=== PATIENT | female | born 1985 | race Caucasian/White ===

== ENCOUNTER 2018-12-06 08:51 | Inpatient (IN) ==
[2018-12-06] MEDS ORDERED: Oxytocin 20 units/ LR 1000 mL 20 UNIT/1,000 ML BAG IVC ONE (09:06)
[2018-12-06 09:51] LABS: Basophils # 0.1 K/mcL (0.0-0.2); Basophils % 0.2 %; Hematocrit 45.2 % (35.3-44.9); Hemoglobin 15.1 g/dL (11.5-15.4); Immature Granulocytes % 0.7 % (0-4); Lymphocytes % 4.8 %; Mean Corpuscular HGB Conc 33.4 g/dL (31.6-35.5); Mean Corpuscular Volume 95.8 fL (83.0-100.0); Mean Platelet Volume 12.2 fL (9.4-12.4); Monocytes # 0.8 K/mcL (0.0-1.3); Monocytes % 3.7 %; Neutrophils # 19.3 K/mcL (1.6-8.9); Platelet Count 174 K/mcL (140-400); Red Blood Count 4.72 M/mcL (3.82-4.97); Red Cell Distribution Width 13.1 % (11.5-14.5); Segmented Neutrophils % 90.6 %; White Blood Count 21.3 K/mcL (4.3-11.1)
[2018-12-06] MEDS ORDERED: Measles/Mumps/Rubella Vacc 0.5 ML VIAL SQ PRN (10:08)
--- NOTE | 2018-12-06 10:10 | OB/GYN Procedure Note ---
Delivery - Delivery Date: 12/06/18 Provider: Randa Malone Intrapartum events: meconium, prolonged 2nd stage>2.5hr Delivery induction: none Delivery monitor: external FHT Anesthesia: none Quantitated Blood Loss: 300 - (s) A Delivery Date: 12/06/18 Delivery Time: 09:12 Presentation: vertex Position: LOP Route of delivery: Gender: Male Viability: Viable Pounds: 8 Ounces: 15 Weight Gram: 4.04 kg at 1 minute: 8 at 5 mins: 9 Shoulder Dystocia: not encountered Specimens collected: cord blood Placenta: spontaneous - Repair Episiotomy: none Laceration Description: Perineal - 2nd Degree - Complications Delivery complications: meconium - Disposition Mom disposition: stable in LDR disposition: stable in LDR - Comments Comments: 32yo @ 41.0wga presented from the [facility] having pushed for approximately 2 hours with a presumed brow presentation, mentum anterior. She spontaneously ruptured at 0508 and meconium fluid was noted. She started pushing at 0548. Upon arrival to labor and delivery she was found to be complete and +1. The head was ROP and the brow was converting to a vertex with pushes. The patient progressed to complete without epidural anesthesia. She pushed to deliver a live male over an intact perineum. The head delivered in ROP position. A nuchal cord was not identified. The right anterior shoulder delivered with ease followed by the rest of the body. The 's mouth and nose were not bulb suctioned. The infant was safely transferred to the maternal abdomen for further care by RN and mother-baby skin to skin time. The umbilical cord was clamped 2 and cut by the father. Cord blood was collected and sent for routine testing. The placenta was expressed intact and held for possible testing. The cervix, vagina and perineum were inspected. A second degree midline perineal laceration was noted. This laceration was repaired with 2-0 Monocryl in usual fashion. APGARS 8/9. Weight 8# 15oz. EBL was [address] Malone was present for delivery.
[2018-12-06] MEDS ORDERED: Oxytocin 20 units/ LR 1000 mL 20 UNIT/1,000 ML BAG IVC SCH (10:15)
[2018-12-06] MEDS ORDERED: Ibuprofen 600 MG TABLET PO SCH (12:00)
[2018-12-06] MEDS ORDERED: Acetaminophen 325 MG TABLET PO SCH (12:00)
--- NOTE | 2018-12-06 17:07 | Discharge Summary ---
Date of Encounter: 12/06/18 Time of Encounter: 17:05 - Discharge Diagnosis (1) Vaginal delivery Priority: Primary Status: Acute Comments: S/P Vaginal delivery Pain is well controlled Lochia is light and without clots Voiding without difficulty Tolerating regular diet Would like to discharge home today (day 0) Stable and per consult with Dr Malone; ok to discharge - Discharge Medications Prescriptions: New Acetaminophen [Tylenol] 650 mg PO Q6HR tablet Ibuprofen [Motrin] 600 mg PO Q6HR tablet Docusate [Colace] 100 mg PO BID capsule Continued 19 Tablet 1 tab PO DAILY Home Medications: Acetaminophen [Tylenol] 650 mg PO Q6HR tablet 12/06/18 [Rx] Docusate [Colace] 100 mg PO BID capsule 12/06/18 [Rx] Ibuprofen [Motrin] 600 mg PO Q6HR tablet 12/06/18 [Rx] 19 Tablet 1 tab PO DAILY 12/06/18 [History] Allergies/Adverse Reactions: Allergy/AdvReac Type Severity Reaction Status Date / Time No Known Allergies Allergy Verified 12/06/18 09:05 Data Procedures and tests throughout hospitalization: Laboratory Tests 12/06/18 12/06/18 09:00 09:00 WBC 21.3 H RBC 4.72 Hgb 15.1 Hct 45.2 H MCV 95.8 MCH 32.0 MCHC 33.4 RDW 13.1 Plt Count 174 MPV 12.2 Immature Gran % 0.7 Seg Neutrophils % 90.6 Lymphocytes % 4.8 Monocytes % 3.7 Eosinophils % 0.0 Basophils % 0.2 Neutrophils # 19.3 H Lymphocytes # 1.0 Monocytes # 0.8 Eosinophils # 0.0 Basophils # 0.1 Hep Bs Antigen Nonreactive Labs on day of discharge: Labs from last 24 hours 12/06/18 12/06/18 09:00 09:00 WBC 21.3 H RBC 4.72 Hgb 15.1 Hct 45.2 H MCV 95.8 MCH 32.0 MCHC 33.4 RDW 13.1 Plt Count 174 MPV 12.2 Immature Gran % 0.7 Seg Neutrophils % 90.6 Lymphocytes % 4.8 Monocytes % 3.7 Eosinophils % 0.0 Basophils % 0.2 Neutrophils # 19.3 H Lymphocytes # 1.0 Monocytes # 0.8 Eosinophils # 0.0 Basophils # 0.1 Hep Bs Antigen Nonreactive Date of admission: 12/06/18 08:51 Primary care physician: PCP NONE Discharging clinician: Katherine Coffman Anticipated date of discharge: 12/06/18 - Patient Status Disposition: Home, Self-Care Condition: Good Functional capacity at discharge: independent ambulation Overall status at discharge: patient is progressing back to baseline - Discharge Instructions Follow Up With: NONE,PCP [Primary Care Provider] - Additional Instructions: 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 We would be happy to see you with any problems, questions, or concerns that you may have. - Diet and Activity Activity: increase activity as tolerated Diet: regular diet Hospital Course Reason for admission: active labor (brow presentation at [facility]), IUP at term Episiotomy: none Laceration: 2nd degree Other procedures: none complications: none Discharge diagnosis: IUP at term delivered [place] baby: male Time Attestation: Total time spent providing and/or coordinating discharge services: Time Spent: Less than 30 minutes Exam - Constitutional Vitals: Temp Pulse Resp BP Pulse Ox 98.2 F 65 16 100/55 98 12/06/18 13:50 12/06/18 13:50 12/06/18 13:50 12/06/18 13:50 12/06/18 13:50 General appearance IM: cooperative, A&O X 3, pleasant - Respiratory Respiratory exam: Present: CTAB - Cardiovascular Cardiovascular exam IM: Present: RRR, +S1, +S2 - GI/Abdominal GI/Abdominal exam IM: normal bowel sounds, soft - Rectal Rectal exam: deferred - Uterine Tone: Firm Uterus Position: 1 Finger Below Umbilicus, Midline - Extremities Exam Extremities exam IM: Present: normal capillary refill, normal inspection, radial pulses palpable and symmetrical - Neurological Exam Neurological exam: alert, oriented X3
[2018-12-06 17:26] VITALS: BP 96/54
[2018-12-07] MEDS ORDERED: Prenatal Vit/FA 1 EACH TABLET PO SCH (09:00)
== END 2018-12-06 18:00 | disposition home or self-care (01) | DRG 807 ==
LOC: 1NENULAB 08:51 → 1NENUOBS 12:16
PROVIDERS: ADMIT Obstetrics & Gynecology; ATTEND Obstetrics & Gynecology